=== PATIENT | female | born 1985 | race American Indian/Alaskan Native ===

== ENCOUNTER 2016-10-17 11:21 | Emergency (ER) | payer MEDICAID ==
[2016-10-17 11:22] VITALS: BMI 20.2
[2016-10-17] MEDS ORDERED: Sodium Chloride 0.9% 1,000 ML IV STA (11:33)
--- NOTE | 2016-10-17 11:44 | ED PDOC ---
Arrival/HPI - General Chief Complaint: Shortness Of Breath Time Seen by Provider: 10/17/16 11:30 Historian: Patient - History of Present Illness Narrative History of Present Illness (Text): 10/17/16 11:21 A 31 year old female, who is 5 months and 3 weeks , whose past medical history includes malaria, hepatitis B, ovarian cyst eruption, and a lumpectomy, is presenting to the emergency department during her shift at [facility], with shortness of breath, which began a few days ago. The patient reports her symptoms began 1 week ago with a sore throat and then she developed a dry cough with associated chest pain/tightness with coughing and some shortness of breath. She notes that her throat is still sore and she now has generalized body aches. The patient denies any fever, abdominal pain, vaginal bleeding, or any other symptoms at this time. 0 Time/Duration: 1 week Symptom Onset: Sudden Symptom Course: Unchanged Quality: Tightness Activities at Onset: Rest, Light Context: Home, Work Past Medical History - Provider Review Nursing Documentation Reviewed: Yes - Infectious Disease Hx of Infectious Diseases: None - Neurological Other/Comment: Malaria Fever - Hematological/Oncological Hx Hepatitis B: Yes Other/Comment: Malaria - Genitourinary/Gynecological Other/Comment: Ovarian Cysts - Psychiatric Hx Substance Use: No - Surgical History Other/Comment: Lumpectomy. Partial Ovary Resection - Anesthesia Hx Anesthesia: Yes Hx Anesthesia Reactions: No Hx Malignant Hyperthermia: No Family/Social History - Physician Review Nursing Documentation Reviewed: Yes Family/Social History: Other (nc) Smoking Status: Never Smoked Hx Alcohol Use: No Hx Substance Use: No Allergies/Home Meds Allergies/Adverse Reactions: Allergies chloroquine Allergy (Verified 10/17/16 11:26) RASH H and S Review of Systems - Physician Review All systems were reviewed & negative as marked: Yes - Review of Systems Constitutional: Other (generalized bodyaches). absent: Fevers ENT: Sore Throat (1 week) Respiratory: SOB (< 1 week), Cough. absent: Sputum Cardiovascular: Chest Pain (with coughing) Gastrointestinal: absent: Abdominal Pain Genitourinary Female: absent: Vaginal Bleeding Physical Exam Vital Signs Reviewed: Yes Vital Signs Temp Pulse Resp BP Pulse Ox 10/17/16 15:16 98 F 86 19 109/75 99 10/17/16 15:14 98 F 99 H 20 109/71 100 10/17/16 13:22 98.8 F 99 H 18 102/67 100 10/17/16 11:22 98.4 F 124 H 20 106/69 100 - Systems Exam Head: Present: Atraumatic, Normocephalic Pupils: Present: PERRL Extroacular Muscles: Present: EOMI Mouth: Present: Moist Mucous Membranes Neck: Present: Normal Range of Motion Respiratory/Chest: Present: Clear to Auscultation, Good Air Exchange. No: Respiratory Distress, Accessory Muscle Use Cardiovascular: Present: Tachycardic Abdomen: Present: Other (Gravid) Back: Present: Normal Inspection Upper Extremity: Present: Normal Inspection. No: Cyanosis, Edema Lower Extremity: Present: Normal Inspection. No: Edema Neurological: Present: GCS=15, Speech Normal, Motor Func Grossly Intact, Normal Sensory Function. No: CN II-XII Intact Skin: Present: Warm, Dry, Normal Color. No: Rashes Psychiatric: Present: Alert, Oriented x 3, Normal Insight, Normal Concentration Medical Decision Making ED Course and Treatment: 10/17/16 11:21 Progress Notes: EKG: Ordered, reviewed, and independently interpreted the EKG. Rate : 124 BPM Rhythm : Sinus Tachycardia Interpretation : Normal axis. Normal intervals. No acute STEMI. Comparison : No previous EKG for comparison. 10/17/16 12:30 EKG: Bedside Ultrasound Monitor Ordered, reviewed, and independently interpreted the EKG. Rate : Heart 142 BPM Using M mode. 10/17/16 13:04 Radiology states cxr no acute findings, no acute infiltrates. 10/17/16 14:48 the pt reports feeling better. she tolerated a meal while in the ED. her HR improved. she reports chest pain ONLY with cough. she is comfortable w dc at this time. will return for any worsening symptoms. - Lab Interpretations Lab Results: 10/17/16 11:50 10/17/16 11:50 Lab Results 10/17/16 12:55: Urine Color Yellow, Urine Appearance Sl cloudy, Urine pH 7.0, Ur Specific [place] 1.015, Urine Protein Negative, Urine Glucose (UA) Negative, Urine Ketones Negative, Urine Blood Negative, Urine Nitrate Negative, Urine Bilirubin Negative, Urine Urobilinogen 1.0 H, Ur Leukocyte Esterase Trace H, Urine RBC Negative, Urine WBC 0 - 2, Ur Epithelial Cells 0 - 2, Amorphous Sediment Few, Urine Bacteria Small 10/17/16 11:50: PT 10.0, INR 0.93, APTT 23.0 L 10/17/16 11:50: Sodium 136, Potassium 3.7, Chloride 104, Carbon Dioxide 24, Anion Gap 12, BUN 8, Creatinine 0.6, Est GFR ( Amer) > 60, Est GFR (Non- Af Amer) > 60, Random Glucose 91, Calcium 9.0, Total Bilirubin 0.9, AST 31, ALT 42, Alkaline Phosphatase 53, Troponin I < 0.01, Total Protein 6.7, Albumin 3.5, Globulin 3.3, Albumin/Globulin Ratio 1.1 10/17/16 11:50: WBC 12.1 H D, RBC 3.33 L, Hgb 10.9 L, Hct 32.0 L, MCV 96.1, MCH 32.7, MCHC 34.1, RDW 13.6, Plt Count 161, MPV 10.7, Gran % 77.0 H, Lymph % (Auto ) 15.0 L, [place] % (Auto) 6.9 H, Eos % (Auto) 1.0 L, Baso % (Auto) 0.1, Gran # 9.33 H, Lymph # 1.8, [place] # 0.8 H, Eos # 0.1, Baso # 0.01 10/17/16 11:46: Influenza Typ A,B (EIA) Negative for flu a/b 10/17/16 11:46: Grp A Beta Strep Ag Negative - RAD Interpretation Radiology Orders: 10/17/16 11:32 CHEST PORTABLE [RAD] Stat - Medication Orders Current Medication Orders: Discontinued Medications Acetaminophen (Tylenol 325mg Tab) 975 mg PO STAT STA Stop: 10/17/16 12:24 Last Admin: 10/17/16 12:48 Dose: 975 mg Re-Assess: DANNIE Pain/Vitals Document 10/17/16 13:48 GMI (Rec: 10/17/16 15:28 GMI [id number]) Pain Reassessment Is This A Pain ReAssessment? Yes Sleep Is patient sleeping during reassessment? No Presence of Pain Presence of Pain No Sodium Chloride (Sodium Chloride 0.9%) 1,000 mls @ 999 mls/hr IV .Q1H1M STA Stop: 10/17/16 12:33 Last Admin: 10/17/16 11:44 Dose: 999 mls/hr Lidocaine HCl (Lidocaine 2% Viscous) 15 ml PO STAT STA Stop: 10/17/16 11:34 Last Admin: 10/17/16 12:28 Dose: 15 ml - Scribe Statement The provider has reviewed the documentation as recorded by the [place] Provider Scribe Attestation: All medical record entries made by the Scribe were at my direction and personally dictated by me. I have reviewed the chart and agree that the record accurately reflects my personal performance of the history, physical exam, medical decision making, and the department course for this patient. I have also personally directed, reviewed, and agree with the discharge instructions and disposition. Disposition/Present on Arrival - Present on Arrival Any Indicators Present on Arrival: No History of DVT/PE: No History of Uncontrolled Diabetes: No Urinary Catheter: No History of Decub. Ulcer: No History Surgical Site Infection Following: None - Disposition Have Diagnosis and Disposition been Completed?: Yes Diagnosis: Bronchitis Disposition: HOME/ ROUTINE Disposition Time: 14:48 Condition: IMPROVED Discharge Instructions (ExitCare): Acute Bronchitis (ED) Additional Instructions: Please follow up with your OBGYN on Wednesday. Return to the ER for any worsening symptoms or for any other concerns. Prescriptions: Azithromycin 250 mg PO DAILY #6 tab Referrals: PCP,NO [Primary Care Provider] - Follow up with primary Forms: [employer] (Swiss)
[2016-10-17 12:08] LABS: BASO # 0.01 K/mm3 (0.0-2.0); BASO % 0.1 % (0.0-3.0); EOS # 0.1 (0.0-0.7); GRAN # 9.33 (1.4-6.5); HEMOGLOBIN 10.9 gm/dL (12.0-16.0); LYMPH # 1.8 (1.2-3.4); MEAN CELL VOLUME 96.1 fL (80.0-105.0); MEAN CORPUSCULAR HEMOGLOBIN 32.7 pg (25.0-35.0); MEAN CORPUSCULAR HGB CONC 34.1 g/dl (31.0-37.0); MEAN PLATELET VOLUME 10.7 fl (7.0-11.0); MONO # 0.8 (0.1-0.6); MONO % 6.9 % (1.0-6.0); PLATELET COUNT 161 10^3/uL (120.0-450.0); RBC 3.33 10^6/uL (3.5-6.1); RED CELL DISTRIBUTION WIDTH 13.6 % (11.5-14.5); WHITE BLOOD COUNT 12.1 10^3/ul (4.5-11.0)
[2016-10-17 12:19] LABS: INR 0.93 (0.93-1.08)
[2016-10-17 12:23] LABS: ALB/GLOB RATIO 1.1 (1.1-1.8); ALBUMIN 3.5 g/dL (3.0-4.8); ALT/SGPT 42 U/L (7-56); AST/SGOT 31 U/L (15-39); BLOOD UREA NITROGEN 8 mg/dL (7-21); GFR AFRICAN-AMERICAN > 60; GFR NON-AFRICAN AMERICAN > 60
[2016-10-17 12:48] LABS: TROPONIN I < 0.01 ng/mL
[2016-10-17 13:11] LABS: URINE BILIRUBIN NEGATIVE (NEGATIVE); URINE BLOOD NEGATIVE (NEGATIVE); URINE GLUCOSE (UA) NEGATIVE (NEGATIVE); URINE LEUKOCYTE ESTERASE TRACE Leu/uL (NEGATIVE); URINE NITRATE NEGATIVE (NEGATIVE); URINE PROTEIN NEGATIVE mg/dL (<30 mg/dL)
--- NOTE | 2016-10-17 13:11 | RAD ---
HISTORY: cough cp COMPARISON: Chest radiograph portable 03/30/2016. FINDINGS: LUNGS: No active pulmonary disease. Left hemidiaphragm appears mildly elevated, likely due to gas in the splenic flexure and stomach. PLEURA: No significant pleural effusion identified, no pneumothorax apparent. CARDIOVASCULAR: Normal. OSSEOUS STRUCTURES: Stable mild dextroscoliotic thoracolumbar spinal deformity. VISUALIZED UPPER ABDOMEN: Normal. OTHER FINDINGS: None. IMPRESSION: No acute cardiopulmonary disease. Minimal left hemidiaphragm elevation is evident probably related to gas and splenic flexure and stomach. Mild scoliotic thoracolumbar spinal deformity again evident.
[2016-10-17 13:14] LABS: URINE APPEARANCE SL CLOUDY (CLEAR); URINE COLOR YELLOW (YELLOW)
[2016-10-17 13:17] LABS: URINE AMORPHOUS SEDIMENT FEW; URINE BACTERIA SMALL (NEG); URINE EPITHELIAL CELLS 0 - 2 /hpf (0-5); URINE RBC NEGATIVE /hpf (0-2); URINE WBC 0 - 2 /hpf (0-6)
[2016-10-17 15:15] VITALS: TEMP 98
[2016-10-17 15:17] VITALS: BP 109/75; PULSE 86; RESP 19; O2SAT 99
--- NOTE | 2016-10-17 15:18 | CARD ---
APPROVED REPORT EKG Measurement Heart [id number] <Conclusion> Sinus tachycardia Otherwise normal ECG
== END 2016-10-17 15:27 | disposition home or self-care (01) ==
LOC: ED 11:21
DX: J20.9 Acute bronchitis, unspecified (principal)
CPT/HCPCS: 71010; 80053; 81001; 84484; 85025; 85610; 85730; 87070; 87086; 87430; 87804; 93005; 96360; 96361; 99285; J7040